=== PATIENT | female | born 1960 | race Hispanic/Latino ===

== ENCOUNTER → 2017-06-05 | Day surgery (SDC) | payer OTHER ==
[~2017-06-05] MED LIST: ACIPHEX20 MG PO; ALBUTEROL SULF8.5 GM INH; ALEVE220 MG PO; AMLODIPINE BESYL5 MG PO; DEXILANT60 MG PO; FENTANYL CITRATE/PF 100MCG/2 ML INJ ONE; FOLIC ACID1 MG PO; HYDROCHLOROTHIA25 MG PO; HYDROXYCHLOROQ200 MG PO; HYOSCYAMINE SULFATE 0.5 MG/ML AMP ONE; INSULIN REGULAR, HUMAN 100 UNIT/1 ML 3ML VIAL ONE; JANUVIA100 MG PO; LAMOTRIGINE100 MG PO; LEFLUNOMIDE10 MG PO; LIDOCAINE HCL 2% LOCAL INJ 5 ML SDV VIAL INJ ONE; LOSARTAN POTAS100 MG PO; LOSARTAN-HCTZ1 EACH PO; METHOTREXATE2.5 MG PO; MIDAZOLAM HCL 2 MG/2 ML VIAL ONE; ONDANSETRON HCL INJ 2 MG/ML VIAL ONE; PRAVASTATIN SOD40 MG PO; PROPOFOL IV EMULSION 10 MG/ML 50 ML VIAL ONE; Q NASAL INH; QUETIAPINE FUMA25 MG; TRIAMTERENE-HC1 EAC1 PO; ZYRTEC10 M3 PO; ZYRTEC10 MG PO; [UNRECOGNIZED DRUG - OTHER] IH
--- NOTE | 2017-06-05 23:06 | Operative Report ---
DATE OF PROCEDURE: June 05, 2017 REFERRING PHYSICIAN: SONIA DINERO MD PROCEDURES PERFORMED: Esophagogastroduodenoscopy with esophageal dilatation and biopsies and a colonoscopy with polypectomy. INDICATIONS FOR ESOPHAGOGASTRODUODENOSCOPY: Dysphagia to solids and bloating. INDICATIONS FOR COLONOSCOPY: Colorectal cancer screening, brother with colon cancer. MEDICATION: Patient was done under MAC. Please see anesthesiologist's note. PROCEDURE: With patient in the left lateral decubitus position, flexible fiberoptic Olympus gastroscope was introduced into the esophagus under direct visualization without any difficulty. There was some patchy erythema noted in distal esophagus. A mild stricture was noted at the GE junction that was dilated to size 50-[place]. The scope was then advanced with ease into the stomach traversing a moderate-sized hiatal hernia. Mucosa overlying the antrum and body revealed some patchy erythema and mild to moderate edema and biopsies were obtained and sent to stain for H. pylori. The pylorus was of normal contour and shape. Was intubated with ease and the scope was advanced all the way to the 2nd portion of the duodenum. The scope was then withdrawn slowly. Mucosa overlying the proximal 2nd portion and the duodenal bulb appeared to be within normal limits. The scope was then withdrawn back into the stomach and mucosa overlying the fundus and the cardia appeared to be within normal limits. The scope was then straightened out. The stomach was decompressed. The scope was subsequently withdrawn. Patient tolerated the procedure well. IMPRESSION: 1. Distal esophagitis. 2. Mild stricture at gastroesophageal junction dilated to size 50-[place]. 3. Small hiatal hernia. 4. Gastritis, mild. Biopsies obtained and sent to stain for H. pylori. PLAN: Follow up histology. Continue Dexilant 60 mg 1 p.o. q.a.m. a.c. PROCEDURE: Patient was then turned around and after adequate lubrication of the anal canal a flexible fiberoptic Olympus colonoscope was inserted into the rectum with ease and advanced all the way to the cecum. It was then withdrawn slowly. Mucosa overlying the cecum and ascending colon and appeared to be within normal limits. One polyp was snared from the transverse colon. Two polyps were hot biopsied from the sigmoid colon. Diverticular disease was noted to involve the distal descending and the sigmoid colon. The rectum appeared to be within normal limits. The scope was then retroflexed into the distal rectum and small internal hemorrhoids were noted, none of which were actively bleeding. The scope was then straightened out. The rectosigmoid area as well as the distal rectal area were decompressed. Scope was subsequently withdrawn. Patient tolerated procedure well. IMPRESSION 1. Transverse colon polyps snared. 2. Diverticulosis. 3. Sigmoid colon polyps, hot biopsied times 2. 4. Internal hemorrhoids, none actively bleeding. PLAN: Follow up histology. Initiate high-fiber, low-fat diet. Initiate high-fiber supplement. Patient will need a followup colonoscopy in 3 years. Job#: [id number] cc:SONIA DINERO MD
== END | disposition home or self-care (01) ==
LOC: OR 13:32
PROVIDERS: ATTEND Internal Medicine Gastroenterology
DX: K22.2 Esophageal obstruction (principal); D12.3 Benign neoplasm of transverse colon; K29.70 Gastritis, unspecified, without bleeding; K20.9 Esophagitis, unspecified; K44.9 Diaphragmatic hernia without obstruction or gangrene; K57.30 Diverticulosis of large intestine without perforation or abscess without bleeding; K64.8 Other hemorrhoids; I10 Essential (primary) hypertension; E11.9 Type 2 diabetes mellitus without complications; R05 Cough; F32.9 Major depressive disorder, single episode, unspecified; F41.9 Anxiety disorder, unspecified; Z01.810 Encounter for preprocedural cardiovascular examination
CPT/HCPCS: 36415; 43239; 43450; 45384; 45385; 82948; 93005; J1980; J2001; J2250; J2405; 45378

== ENCOUNTER → 2018-04-10 | Day surgery (SDC) | payer OTHER ==
[~2018-04-10] MED LIST changes: -HYOSCYAMINE SULFATE 0.5 MG/ML AMP ONE; -INSULIN REGULAR, HUMAN 100 UNIT/1 ML 3ML VIAL ONE; -ONDANSETRON HCL INJ 2 MG/ML VIAL ONE; +PROPOFOL IV EMULSION 10 MG/ML 20 ML VIAL ONE; -PROPOFOL IV EMULSION 10 MG/ML 50 ML VIAL ONE
--- OUTSIDE RECORDS SUMMARY | 2018-04-10 12:08 | XMS REPORT ---
Author Author Jung Ordonez Organization [employer] Address Unknown Phone Unavailable Care Team Providers Care Report Specialist Name Role Phone Jung Ordonez CP Unavailable Allergies, Adverse Reactions, Alerts Substance Reaction Event Type Methotrexate hair loss Drug Allergy Sulfasalazine hair loss Drug Allergy Diflucan hives Drug Allergy Problems Problem Type Condition Code Onset Dates Condition Status Problem Long-term use of immunosuppressant medication Z79.899 Active Problem Inflammatory arthritis M19.90 Active Problem Rheumatoid arthritis involving multiple sites with positive rheumatoid factor M05.79 Active Assessment Inflammatory arthritis M19.90 Active Assessment Rheumatoid arthritis involving multiple sites with positive rheumatoid factor M05.79 Active Medications Medication Code System Code Instructions Start Date End Date Status Dosage Hydrochlorothiazide-25 mg ND 28257803080 25 MG Orally Once a day Active 1 tablet Alphagan P ND 31559823873 0.1 % Ophthalmic BID Active 1 drop into affected eye Folic Acid ND 73873795331 1 MG Orally Once a day Active 1 tablet Losartan Potassium ND 69236754010 50 MG Orally Once a day Active 1 tablet Pravastatin Sodium ND 68282338919 20 MG Orally Once a day Active 1 tablet Zyrtec Allergy ND 94039850069 10 MG Orally Once a day Active 1 tablet Methotrexate NDC 0 2.5mg Orally Once a week Active 2 tablets Vitamin D (Ergocalciferol) ND 50009905836 01466 UNIT Orally once a week Active 1 capsule Dexilant ND 39000125688 60 MG Orally Once a day Active 1 capsule Vital Signs Date/Time: Jul 18, 2017 BMI 38.41 Index Weight 210 lbs Height 62 in Temperature 98.2 F Cardiac Monitoring Heart Rate 104 /min Blood Pressure Diastolic 80 mm Hg Blood Pressure Systolic 142 mm Hg Results No Known Results Summary Purpose [employer] Submission
--- OUTSIDE RECORDS SUMMARY | 2018-04-10 12:08 | XMS REPORT | Clinical Summary ---
Author Author [facility] Organization [facility] Address Unknown Phone Unavailable Care Team Providers Care Department Editor Name Role Phone Jarad Mathis MD PCP Allergies Active Allergy Reactions Severity Noted Date Comments Fluconazole Hives 09/15/2016 Rash Current Medications Prescription Sig. Disp. Refills Start End Date Status Date DEXILANT 60 mg capsule Take 60 mg by mouth 07/24/19 Active daily. 17 folic acid (FOLVITE) 1 MG Take 1 mg by mouth daily. 08/23/19 Active tablet 17 hydroCHLOROthiazide Take 25 mg by mouth 09/13/19 Active (HYDRODIURIL) 25 MG daily. 17 tablet lamoTRIgine (LaMICtal) Take 200 mg by mouth 0 09/10/19 Active 200 MG tablet daily. 17 losartan (COZAAR) 50 MG Take 50 mg by mouth 09/13/19 Active tablet daily. 17 methotrexate 2.5 MG Take 2.5 mg by mouth 08/24/19 Active tablet daily. 17 pravastatin (PRAVACHOL) Take 20 mg by mouth 09/13/19 Active 20 MG tablet daily. 17 QUEtiapine (SEROquel) 25 Take 25 mg by mouth 0 09/10/19 Active MG tablet daily. 17 LORAZepam (ATIVAN) 0.5 MG 08/20/19 Active tablet 18 latanoprost (XALATAN) 07/17/19 Active 0.005 % ophthalmic 18 solution glimepiride (AMARYL) 2 MG TK 1 T PO QD WITH RENU OR 2 09/20/19 Active tablet THE FIRST MAIN MEAL OF 18 THE DAY brimonidine (ALPHAGAN) 07/17/19 Active 0.2 % ophthalmic solution 18 nystatin (MYCOSTATIN) Apply topically 4 (four) 60 g 3 09/22/19 09/22/19 Active 100,000 unit/gram powder times a day. 18 19 hydroxychloroquine Take 200 mg by mouth 09/15/19 09/22/19 Discontin (PLAQUENIL) 200 mg tablet daily. 17 18 ued traMADol (ULTRAM) 50 mg Take 50 mg by mouth as 0 09/03/19 09/22/19 Discontin tablet needed. 17 18 ued terconazole (TERAZOL 3) Insert 1 applicator into 20 g 0 07/05/19 07/08/19 0.8 % vaginal cream the vagina nightly for 3 18 18 days. terconazole (TERAZOL 7) Insert 1 applicator into 45 g 0 08/14/19 08/22/19 0.4 % vaginal cream the vagina nightly for 7 18 18 days. butoconazole nitrate Insert 1 applicator into 1 each 0 09/22/19 09/22/19 (GYNAZOLE-1) 2 % cream the vagina once for 1 18 dose. metroNIDAZOLE (METROGEL) Insert into the vagina 70 g 0 09/27/19 10/02/19 0.75 % vaginal gel nightly for 5 days. 18 18 Active Problems No known active problems Encounters Date Type Specialty Care Team Description 12/04/2017 Telephone Obstetrics and Gynecology Kylee Schwarz RN 09/28/2017 Telephone Obstetrics and Gynecology Kylee Schwarz RN 09/28/2017 Telephone Obstetrics and Gynecology Kylee Schwarz, JAMI 09/26/2017 Telephone Obstetrics and Gynecology Kylee Schwarz, JAMI 09/21/2017 Office Visit Obstetrics and Gynecology Ana Luisa Smith, [place] woman exam (Primary MD Dx); Breast lump on right side at 11 o'clock position; Vaginal itching; Candidiasis, intertrigo 08/14/2017 Telephone Obstetrics and Gynecology Kylee Schwarz RN 07/20/2017 Telephone Obstetrics and Gynecology Elena Noonan MA Lump of breast, right (Primary Dx); Dense breast tissue 07/05/2017 Telephone Obstetrics and Gynecology Elena Noonan MA after 04/09/2017 Family History Medical History Relation Name Comments Colon cancer Brother Diabetes Father Heart disease Father Hypertension Mother Stomach cancer Sister Breast cancer Sister Relation Name Status Comments Brother Alive Father (Age 60) Mother (Age 85) Sister (Age 53) Sister Alive Social History Tobacco Use Types Packs/Day Years Used Date Never Smoker Smokeless Tobacco: Never Used Alcohol Use Drinks/Week oz/Week Comments Yes 2 Glasses of 1.2 occ wine Sex Assigned at Date Recorded Not on file Last Filed Vital Signs Vital Sign Reading Time Taken Blood Pressure 121/85 09/21/2017 3:21 PM CDT Pulse 96 09/21/2017 3:21 PM CDT Temperature 36.8 C (98.2 F) 09/21/2017 3:21 PM CDT Respiratory Rate - - Oxygen Saturation - - Inhaled Oxygen - - Concentration Weight 92.4 kg (203 lb 12.8 oz) 09/21/2017 3:21 PM CDT Height 154.9 cm (5' 1") 09/21/2017 3:21 PM CDT Body Mass Index 38.51 09/21/2017 3:21 PM CDT Plan of Treatment Health Maintenance Due Date Last Done Comments CERVICAL CANCER SCREENING 1981 COLON CANCER SCREENING 2010 SHINGRIX VACCINE (#1) 2010 BREAST CANCER SCREENING 11/04/2017 11/05/2015 INFLUENZA VACCINE 01/17/2018 Procedures Procedure Name Priority Date/Time Associated Diagnosis Comments SURESWAB(R), CANDIDIASIS, Routine 09/21/2017 Results for this PCR (REFLEX) 4:01 PM CDT procedure are in the results section. SURESWAB(R) TRICHOMONAS Routine 09/21/2017 Results for this VAGINALIS RNA, QL, TMA 4:01 PM CDT procedure are in the results section. SURESWAB(R) BACTERIAL Routine 09/21/2017 Results for this VAGINOSIS DNA, QN, PCR 4:01 PM CDT procedure are in the (REFLEX) results section. CHLAMYDIA/N. GONORRHOEAE Routine 09/21/2017 Results for this RNA, TMA (REFLEX) 4:01 PM CDT procedure are in the results section. after 04/09/2017 Results * SURESWAB(R), CANDIDIASIS, PCR (09/21/2017 4:01 PM) C. albicans, DNA NOT DETECTED [facility] C. glabrata, DNA DETECTED (A) [facility] C. tropicalis, DNA NOT DETECTED [facility] C. parapsilosis, DNA NOT DETECTED [facility] Comment: REFERENCE RANGE: NOT DETECTED This test was developed and its analytical performance characteristics have been determined by [facility]. It has not been cleared or approved by FDA. This assay has been validated pursuant to the CLIA regulations and is used for clinical purposes. Other Results Text Performing Organization Information: Site ID: [id number] Name: [facility] Address: [address] [place] [id number] Director: Jay Broussard MD Performing Organization Address [facility] Phone Number [facility] [address] [place] [address] [phone] * SURESWAB(R) TRICHOMONAS VAGINALIS RNA, QL, TMA (Reflex) (09/21/2017 4:01 PM) [facility](r) trichomonas NOT DETECTED [facility] vaginalis RNA, QL, TMA Comment: REFERENCE RANGE: NOT DETECTED This test was performed using the APTIMA(R) Trichomonas vaginalis assay (Gen-Probe(R)). For additional information, please refer to [email or web address] Other Results Text Performing Organization Information: Site ID: [id number] Name: [facility] Address: [address] [place] [phone] Director: Jay Broussard MD Performing Organization Address [facility] Phone Number [facility] [address] [place] [address] [phone] * SURESWAB(R) BACTERIAL VAGINOSIS DNA, QN, PCR (09/21/2017 4:01 PM) BV category SUPPORTIVE (A) [facility] Lactobacillus species NOT DETECTED Log (cells/mL) [facility] Atopobium vaginae NOT DETECTED Log (cells/mL) [facility] Megasphaera species NOT DETECTED Log (cells/mL) [facility] Gardnerella vaginalis 7.3 Log (cells/mL) [facility] Comment: REFERENCE RANGE: BV Category: NOT SUPPORTIVE NOT SUPPORTIVE OF BV: The pattern of results is not supportive of a diagnosis of BV: 1) Presence of Lactobacillus spp., G. vaginalis levels less than 6.0 log cells/mL, and absence of A. vaginae and Megasphaera spp; or 2) Absence of all targeted organisms; or 3) Absence of Lactobacillus spp. plus G. vaginalis detected at levels less than 6.0 log cells/mL and absence of A. vaginae and Megasphaera spp. EQUIVOCAL FOR BV: The pattern of results is neither supportive nor not supportive of a diagnosis of BV. The patient may be in transition into or out of BV: Presence of Lactobacillus spp. plus G. vaginalis (greater or equal to 6.0 log cells/mL) and/or one of the other BV-associated pathogens. SUPPORTIVE OF BV: The pattern of results is supportive of a diagnosis of BV: Absence of Lactobacillus spp. and presence of G. vaginalis greater than or equal to 6.0 log cells/mL and/or one or both of the other BV-associated pathogens. Concentration for Lactobacilli (L. acidophilus/crispatus, L. jensenii) are collectively reported under the term "Lactobacillus spp.", as these species are among the peroxide producing Lactobacilli thought to be protective against bacterial vaginosis. Atopobium vaginae, Megasphaera spp., and Gardnerella (greater than 6.0 log cells/mL) have been associated with vaginosis when present in the absence of peroxidase producing Lactobacilli. This test was developed and its analytical performance characteristics have been determined by [facility]. It has not been cleared or approved by FDA. This assay has been validated pursuant to the CLIA regulations and is used for clinical purposes. Other Results Text Performing Organization Information: Site ID: [id number] Name: [facility] Address: [address] [place] [phone] Director: Jay Broussard MD Performing Organization Address City/State/Zipcode Phone Number [facility] [address] [place] [address] [phone] * CHLAMYDIA/N. GONORRHOEAE RNA, TMA (09/21/2017 4:01 PM) Chlamydia trachomatis NOT DETECTED [facility] RNA, TMA Neisseria gonorrhoeae NOT DETECTED [facility] RNA, TMA Comment: REFERENCE RANGE: C. TRACHOMATIS RNA, TMA: NOT DETECTED N. GONORRHOEAE RNA, TMA: NOT DETECTED This test was performed using the APTIMA(R) COMBO2 Assay (GEN-PROBE). Other Results Text Performing Organization Information: Site ID: [id number] Name: [facility] Address: [address] [place] [phone] Director: Jay Broussard MD Performing Organization Address City/State/Zipcode Phone Number [facility] [address] [place] [address] [phone] after 04/09/2017 Insurance Payer Benefit Subscriber ID Type Phone Address Plan / Group AETNA AETNA PPO xxxxxxxxxx PPO OPEN CHOICE
--- OUTSIDE RECORDS SUMMARY | 2018-04-10 12:08 | XMS REPORT ---
Author Author Jung Ordonez Organization [employer] Address Unknown Phone Unavailable Care Team Providers Care Mental Health Orderly Name Role Phone uJng Ordonez CP Unavailable Allergies No Known Allergies Problems Problem Type Condition Code Onset Dates Condition Status Problem Rheumatoid arthritis involving multiple sites with positive rheumatoid factor M05.79 Active Problem Long-term use of immunosuppressant medication Z79.899 Active Problem Jaw pain R68.84 Active Problem Inflammatory arthritis M19.90 Active Medications No Known Medications Results No Known Results Summary Purpose [employer]Works Submission
--- OUTSIDE RECORDS SUMMARY | 2018-04-10 12:08 | XMS REPORT | Continuity of Care Document ---
Author Author [facility] Address Unknown Phone Unavailable Problems Problem Status Onset Date Classification Date Reported Comments Source Rheumatoid arthritis involving multiple sites with positive rheumatoid factor Active Problem 12/20/2017 Tommy Ordonez Long-term use of immunosuppressant medication Active Problem 12/20/2017 Tommy Ordonez Jaw pain Active Diagnosis 12/20/2017 Tommy Ordonez Inflammatory arthritis Active Diagnosis 12/20/2017 Tommy Ordonez Medications Medication Details Route Status Patient Instructions Ordering Provider Order Date Source Cyclobenzaprine HCl 1 tablet as needed Orally Active 10 MG Orally once a day [place] 12/08/2017 Tommy Ordonez Hydrochlorothiazide-25 mg 1 tablet Orally Active 25 MG Orally Once a day Ordonez Tommy Ordonez Alphagan P 1 drop into affected eye Ophthalmic Active 0.1 % Ophthalmic BID [place] Tommy Ordonez Folic Acid 1 tablet Orally Active 1 MG Orally Once a day Ordonez Tommy Ordonez Losartan Potassium 1 tablet Orally Active 50 MG Orally Once a day Ordonez Tommy Ordonez Pravastatin Sodium 1 tablet Orally Active 20 MG Orally Once a day Ordonez Tommy Ordonez Zyrtec Allergy 1 tablet Orally Active 10 MG Orally Once a day Ordonez Tommy Ordonez Methotrexate 2 tablets Orally Active 2.5mg Orally Once a week Mery Ordonez Vitamin D (Ergocalciferol) 1 capsule Orally Active 82079 UNIT Orally once a week Ordonez Tommy Ordonez Dexilant 1 capsule Orally Active 60 MG Orally Once a day Ordonez Tommy Ordonez Vitamin D 1 tablet Orally Active 1000 UNIT Orally Once a day Ordonez Tommy Ordonez Plaquenil 1 tablet with food or milk Orally Active 200 MG Orally Twice a day Mery Ordonez Womens Multivitamin as directed Orally Active - Orally Ordonez Tommy Ordonez Vitamin B12 not defined Orally Active Orally Once a month Mery Ordonez Allergies, Adverse Reactions, Alerts Substance Category Reaction Severity Reaction type Status Date Reported Comments Source Methotrexate Adverse Reaction hair loss Adverse Reaction Active 12/05/2017 Tommy Ordonez Sulfasalazine Adverse Reaction hair loss Adverse Reaction Active 12/05/2017 Tommy Ordonez Diflucan Adverse Reaction hives Adverse Reaction Active 12/05/2017 Tommy Thompsoner Immunizations Immunization Date Given Site Status Last Updated Comments Source Results Order Name Results Value Reference Range Date Interpretation Comments Source Vital Signs Vital Sign Value Date Comments Source Weight 205 12/05/2017 Tommy Ordonez Height 62 12/05/2017 Tommy Ordonez Temperature Oral (F) 98.4 F 12/05/2017 Tommy Ordonez Heart Rate 88 12/05/2017 Tommy Ordonez Diastolic (mm Hg) 78 12/05/2017 Tommy Ordonez Systolic (mm Hg) 120 12/05/2017 Tommy Ordonez Weight 210 07/18/2017 Tommy Ordonez Height 62 07/18/2017 Tommy Thompsoner Temperature Oral (F) 98.2 F 07/18/2017 Tommy Ordonez Heart Rate 104 07/18/2017 Tommy Ordonez Diastolic (mm Hg) 80 07/18/2017 Tommy Ordonez Systolic (mm Hg) 142 07/18/2017 Tommy Ordonez Encounters Location Location Details Encounter Type Encounter Number Reason For Visit Attending Provider ADM Date DC Date Status Source Procedures Procedure Code Date Perfomer Comments Source
--- OUTSIDE RECORDS SUMMARY | 2018-04-10 12:08 | XMS REPORT ---
Author Author Jung Ordonez Organization [employer] Address Unknown Phone Unavailable Care Team Providers Care Senior Reactor Operator Name Role Phone Jung Ordonez CP Unavailable Allergies No Known Allergies Problems Problem Type Condition Code Onset Dates Condition Status Problem Rheumatoid arthritis involving multiple sites with positive rheumatoid factor M05.79 Active Problem Long-term use of immunosuppressant medication Z79.899 Active Problem Jaw pain R68.84 Active Problem Inflammatory arthritis M19.90 Active Medications Medication Code System Code Instructions Start Date End Date Status Dosage Cyclobenzaprine HCl [facility] 93303574607 10 MG Orally once a day December 08, 2017 Mar 08, 2018 Active 1 tablet as needed Results No Known Results Summary Purpose [employer] Submission
--- OUTSIDE RECORDS SUMMARY | 2018-04-10 12:08 | XMS REPORT ---
Author Author Jung Ordonez Organization [employer] Address Unknown Phone Unavailable Care Team Providers Care Sheet Catcher Name Role Phone Jung Ordonez CP Unavailable [...]
--- OUTSIDE RECORDS SUMMARY | 2018-04-10 12:08 | XMS REPORT ---
Author Author Jung Ordonez [facility] [employer] Address Unknown Phone Unavailable Care Team Providers Care Pensions Retirement Plan Specialist Name Role Phone Jung Ordonez CP Unavailable Allergies, Adverse Reactions, Alerts Substance Reaction Event Type Methotrexate hair loss Drug Allergy Sulfasalazine hair loss Drug Allergy Diflucan hives Drug Allergy Problems Problem Type Condition Code Onset Dates Condition Status Assessment Jaw pain R68.84 Active Problem Rheumatoid arthritis involving multiple sites with positive rheumatoid factor M05.79 Active Problem Long-term use of immunosuppressant medication Z79.899 Active Problem Jaw pain R68.84 Active Assessment Inflammatory arthritis M19.90 Active Assessment Long-term use of immunosuppressant medication Z79.899 Active Problem Inflammatory arthritis M19.90 Active Assessment Rheumatoid arthritis involving multiple sites with positive rheumatoid factor M05.79 Active Medications Medication Code System Code Instructions Start Date End Date Status Dosage Hydrochlorothiazide-25 mg ND 02753355367 25 MG Orally Once a day Active 1 tablet Zyrtec Allergy ND 02524872504 10 MG Orally Once a day Active 1 tablet Vitamin D ND 00070478469 1000 UNIT Orally Once a day Active 1 tablet Plaquenil ND 16451949925 200 MG Orally Twice a day Active 1 tablet with food or milk Folic Acid ND 50222595289 1 MG Orally Once a day Active 1 tablet Dexilant ND 29498182161 60 MG Orally Once a day Active 1 capsule Losartan Potassium ND 71960389747 50 MG Orally Once a day Active 1 tablet Alphagan P ND 55719644868 0.1 % Ophthalmic BID Active 1 drop into affected eye Womens Multivitamin ND 96676376556 - Orally Active as directed Vitamin B12 ND 56018600291 Orally Once a month Active not defined Methotrexate NDC 0 2.5mg Orally Once a week Active 2 tablets Pravastatin Sodium ND 36851960664 20 MG Orally Once a day Active 1 tablet Vital Signs Date/Time: December 05, 2017 BMI 37.49 Index Weight 205 lbs Height 62 in Temperature 98.4 F Cardiac Monitoring Heart Rate 88 /min Blood Pressure Diastolic 78 mm Hg Blood Pressure Systolic 120 mm Hg Results No Known Results Summary Purpose [employer] Submission
[2018-04-10 15:25] VITALS: BP 100/53
--- NOTE | 2018-04-10 15:33 | Operative Report ---
DATE OF PROCEDURE: April 10, 2018 REFERRING PHYSICIAN: Dr. Jarad Mathis PROCEDURE PERFORMED: Esophagogastroduodenoscopy with biopsies and esophageal dilatation. INDICATIONS FOR EGD: Dysphagia. MEDICATION: Patient was done under MAC. Please see anesthesiologist's note. PROCEDURE: With the patient in the left lateral decubitus position, the flexible fiberoptic Olympus gastroscope was introduced into the esophagus under direct visualization without any difficulty. There was some patchy erythema noted in the distal esophagus. Minute tongue of velvety red mucosa was noted to extend proximally from the GE junction, and that was biopsied to rule out Esteves's. There was a mild stricture noted at the GE junction, and that was dilated to size 52-[place] De Luna. The scope was then advanced with ease into the stomach, traversing a small sliding hiatal hernia. Mucosa overlying the antrum and the body revealed some diffuse erythema and moderate edema, and biopsies were obtained and sent to stain for H. pylori. Some minute gastric polyps were noted in the body, and some were partially excised with cold biopsy forceps. Pylorus appeared to be of normal contour and shape. It was intubated with ease, and the scope was advanced all the way to the 2nd portion of duodenum. There were some, approximately 2, somewhat scalloped folds noted in the proximal 2nd portion, and biopsies were obtained to rule out sprue. Mucosa overlying the duodenal bulb appeared to be within normal limits. The scope was then withdrawn back into the stomach and retroflexed. Mucosa overlying the fundus and cardia appeared to be within normal limits. The scope was then straightened out. It was subsequently withdrawn. Patient tolerated the procedure well. IMPRESSION 1. Distal esophagitis, mild. 2. Rule out Esteves's. 3. Mild stricture at gastroesophageal junction dilated to size 52-[place] De Luna. 4. Small sliding hiatal hernia. 5. Gastritis, biopsied. Biopsies sent to stain for H. pylori. 6. Gastric polyps, minute, body, some partially excised with cold biopsy forceps. 7. Rule out sprue. PLAN: Follow up histology. Continue Dexilant 60 mg 1 p.o. q.a.m. a.c. Add Reglan 10 mg 1 p.o. a.c. t.i.d. and nightly. Job#: [id number] cc:JARAD MATHIS MD
== END | disposition home or self-care (01) ==
LOC: OR 12:06
PROVIDERS: ATTEND Internal Medicine Gastroenterology
DX: K22.2 Esophageal obstruction (principal); K31.7 Polyp of stomach and duodenum; K29.70 Gastritis, unspecified, without bleeding; K20.9 Esophagitis, unspecified; K44.9 Diaphragmatic hernia without obstruction or gangrene; K21.9 Gastro-esophageal reflux disease without esophagitis; K22.8 Other specified diseases of esophagus; I10 Essential (primary) hypertension; E78.00 Pure hypercholesterolemia, unspecified; H40.9 Unspecified glaucoma; M06.9 Rheumatoid arthritis, unspecified; E11.9 Type 2 diabetes mellitus without complications; Z88.8 Allergy status to other drugs, medicaments and biological substances; Z01.810 Encounter for preprocedural cardiovascular examination; Z68.38 Body mass index [BMI] 38.0-38.9, adult; Z80.0 Family history of malignant neoplasm of digestive organs
CPT/HCPCS: 43239; 43450; 93005; J2001; J2250

== ENCOUNTER → 2019-05-29 | Day surgery (SDC) | payer OTHER ==
[~2019-05-29] MED LIST changes: +BIOTIN2500 MCG PO; -FENTANYL CITRATE/PF 100MCG/2 ML INJ ONE; +GLIMEPIRIDE2 MG PO; +GLYXAMBI 10 MG1 EACH PO; +MULTI-VITAMIN1 EACH PO; -PROPOFOL IV EMULSION 10 MG/ML 20 ML VIAL ONE; +PROPOFOL IV EMULSION 10 MG/ML 50 ML VIAL ONE; +VITAMIN D32000 UNI1 PO
[2019-05-29 13:00] VITALS: BP 107/77
--- NOTE | 2019-05-29 13:16 | Operative Report ---
DATE OF PROCEDURE: 05/29/2019 SURGEON: Wilfred Peters MD PROCEDURES: EGD with polypectomy and esophageal dilatation and biopsies. INDICATIONS FOR EGD: Dysphagia. MEDICATIONS: The patient was done under MAC, please see anesthesiologist's note. PROCEDURE IN DETAIL: With the patient in left lateral decubitus position, a flexible fiberoptic Olympus gastroscope was introduced into the esophagus under direct visualization without any difficulty. A mild esophageal stricture was noted at the GE junction and that was dilated to size 52-[place] De Luna. The scope was then advanced with ease into the stomach traversing a small hiatal hernia. There was a nodule in the hiatal hernia sac and that was biopsied. Several polyps were noted in the body of the stomach and approximately 5 polyps were removed per snare electrocautery. The mucosa overlying the antrum and the body revealed some patchy areas of erythema. The pylorus was intubated with ease and the scope was advanced all the way to the second portion of the duodenum. The scope was then withdrawn slowly mucosa overlying the proximal second portion and the duodenal bulb appeared to be within normal limits. The scope was then withdrawn back into the stomach and retroflexed, and mucosa overlying the fundus and cardia appeared to be within normal limits. The scope was then straightened out, it was subsequently withdrawn. The patient tolerated the procedure well. IMPRESSION: 1. Esophageal stricture at GE junction, dilated to size 52-[place] De Luna. 2. Small hiatal hernia. 3. Minute nodule, hiatal hernia sac biopsied. 4. Gastric polyps, approximately 5 up to 4 mm in size were removed per snare electrocautery. 5. Gastritis, mild. PLAN: 1. Follow up histology. 2. Continue Dexilant 60 mg one p.o. q.a.m. a.c. Wilfred Peters MD [facility] [place]/MODL /[id number] cc: Tk Coto MD
== END | disposition home or self-care (01) ==
LOC: OR 09:39
PROVIDERS: ATTEND Internal Medicine Gastroenterology
DX: R13.10 Dysphagia, unspecified (principal); K22.2 Esophageal obstruction; K44.9 Diaphragmatic hernia without obstruction or gangrene; K31.7 Polyp of stomach and duodenum; K29.70 Gastritis, unspecified, without bleeding; Z01.810 Encounter for preprocedural cardiovascular examination
CPT/HCPCS: 36415; 43239; 43251; 43450; 82948; 93005; J2001; J2250; J2704

== ENCOUNTER → 2020-10-22 | Day surgery (SDC) | payer OTHER ==
[~2020-10-22] MED LIST changes: +COMBIGAN EYE DRO5 ML OP; -LIDOCAINE HCL 2% LOCAL INJ 5 ML SDV VIAL INJ ONE; +METFORMIN HCL500 MG PO; -MIDAZOLAM HCL 2 MG/2 ML VIAL ONE; +PANTOPRAZOLE 40 MG 10ML VIAL ONE; -PROPOFOL IV EMULSION 10 MG/ML 50 ML VIAL ONE
[2020-10-22 15:40] VITALS: BP 118/65
== END | disposition home or self-care (01) ==
LOC: OR 11:59
PROVIDERS: ATTEND Internal Medicine Gastroenterology
DX: Z12.11 Encounter for screening for malignant neoplasm of colon (principal); Z86.010 Personal history of colon polyps; K31.7 Polyp of stomach and duodenum; K29.70 Gastritis, unspecified, without bleeding; K21.9 Gastro-esophageal reflux disease without esophagitis; K20.90 Esophagitis, unspecified without bleeding; K44.9 Diaphragmatic hernia without obstruction or gangrene; K57.30 Diverticulosis of large intestine without perforation or abscess without bleeding; K64.8 Other hemorrhoids; I10 Essential (primary) hypertension; E78.5 Hyperlipidemia, unspecified; E11.9 Type 2 diabetes mellitus without complications; Z01.810 Encounter for preprocedural cardiovascular examination; Z01.812 Encounter for preprocedural laboratory examination; Z20.822 Contact with and (suspected) exposure to COVID-19; Z79.84 Long term (current) use of oral hypoglycemic drugs; Z80.0 Family history of malignant neoplasm of digestive organs
CPT/HCPCS: 36415; 43239; 45378; 82948; 93005; C9113; U0002; 43450

== ENCOUNTER 2021-10-17 18:35 | Emergency (ER) | payer OTHER ==
[~2021-10-17] VITALS: Ht 154.9 cm; Wt 90.3 kg
[~2021-10-17 18:35] MED LIST changes: -PANTOPRAZOLE 40 MG 10ML VIAL ONE
== END 2021-10-17 19:51 | disposition home or self-care (01) ==
LOC: ER 18:45
DX: S92.531A Displaced fracture of distal phalanx of right lesser toe(s), initial encounter for closed fracture (principal); W20.8XXA Other cause of strike by thrown, projected or falling object, initial encounter; Y92.89 Other specified places as the place of occurrence of the external cause; I10 Essential (primary) hypertension; E11.9 Type 2 diabetes mellitus without complications; E78.5 Hyperlipidemia, unspecified; I50.9 Heart failure, unspecified; K21.9 Gastro-esophageal reflux disease without esophagitis
CPT/HCPCS: 99283

== ENCOUNTER 2022-02-14 20:42 | Emergency (ER) | payer OTHER ==
[~2022-02-14] VITALS: Ht 154.9 cm; Wt 87.1 kg
[2022-02-14] MEDS ORDERED: ONDANSETRON HCL 4 MG ORAL DISINTEGRATING TAB PO ONE (21:00)
[2022-02-14 21:09] LABS: CLARITY,URINE SL CLOUDY (CLEAR); COLOR,URINE YELLOW (YELLOW); KETONES,URINE NEGATIVE (NEGATIVE); LEUKOCYTE ESTERASE ,URINE NEGATIVE (NEGATIVE); NITRITE,URINE NEGATIVE (NEGATIVE); PROTEIN,URINE DIPSTICK TRACE (NEGATIVE); URINE UROBILINOGEN 0.2 mg/dL (0.2 - 1)
[2022-02-14 21:16] LABS: BACTERIA,URINE MODERATE /HPF; EPITHELIAL CELLS,URINE MODERATE /LPF; RENAL EPITHELIAL CELLS,URINE FEW; WBC,URINE (MAN) 0-5 /HPF (0-5)
== END 2022-02-14 21:28 | disposition home or self-care (01) ==
LOC: ER 20:51
DX: S39.012A Strain of muscle, fascia and tendon of lower back, initial encounter (principal); R11.0 Nausea; I10 Essential (primary) hypertension; E11.9 Type 2 diabetes mellitus without complications; E78.5 Hyperlipidemia, unspecified; I50.9 Heart failure, unspecified; K21.9 Gastro-esophageal reflux disease without esophagitis
CPT/HCPCS: 81001; 99282; Q0162

== ENCOUNTER → 2022-09-22 | Day surgery (SDC) | payer OTHER ==
[~2022-09-22] MED LIST changes: +BENADRYL25 M1 PO; +BIOTIN5 M1 PO; +FENTANYL CITRATE/PF 100MCG/2 ML INJ ONE; +LACTATED RINGER'S 1,000 ML ONE; +LIDOCAINE HCL 2% LOCAL INJ 5 ML SDV VIAL INJ ONE; +METOCLOPRAMIDE HCL 10 MG/2ML VIAL ONE; +ONDANSETRON HCL INJ 2MG/ML 2ML 2 MG/ML VIAL ONE; +OZEMPIC0.25 MG/0. SC; +POVIDONE IODINE 0.05% 0.05 % ML PO ONE; +PROPOFOL IV EMULSION 10 MG/ML 20 ML VIAL ONE; +VITAMIN D310 MC1 PO
[2022-09-22 16:50] VITALS: BP 126/70
== END | disposition home or self-care (01) ==
LOC: ENDO 13:29
PROVIDERS: ATTEND Internal Medicine Gastroenterology
DX: K22.2 Esophageal obstruction (principal); K31.7 Polyp of stomach and duodenum; K29.70 Gastritis, unspecified, without bleeding; K22.70 Barrett's esophagus without dysplasia; K44.9 Diaphragmatic hernia without obstruction or gangrene; K59.09 Other constipation; Z71.3 Dietary counseling and surveillance; I10 Essential (primary) hypertension; E78.00 Pure hypercholesterolemia, unspecified; H40.9 Unspecified glaucoma; M06.9 Rheumatoid arthritis, unspecified; E11.9 Type 2 diabetes mellitus without complications; Z01.810 Encounter for preprocedural cardiovascular examination; Z79.84 Long term (current) use of oral hypoglycemic drugs; Z79.85 Long-term (current) use of injectable non-insulin antidiabetic drugs; Z79.899 Other long term (current) drug therapy; Z68.35 Body mass index [BMI] 35.0-35.9, adult; Z80.0 Family history of malignant neoplasm of digestive organs
CPT/HCPCS: 36415; 43239; 43450; 82948; 93005; C9113; J2001; J2405; J2704; J2765; J3010; J7121

== ENCOUNTER 2023-04-24 19:59 | Emergency (ER) | payer OTHER ==
[~2023-04-24] VITALS: Ht 154.9 cm; Wt 87.1 kg
[~2023-04-24 19:59] MED LIST changes: -FENTANYL CITRATE/PF 100MCG/2 ML INJ ONE; -LACTATED RINGER'S 1,000 ML ONE; -LIDOCAINE HCL 2% LOCAL INJ 5 ML SDV VIAL INJ ONE; -METOCLOPRAMIDE HCL 10 MG/2ML VIAL ONE; -ONDANSETRON HCL INJ 2MG/ML 2ML 2 MG/ML VIAL ONE; -POVIDONE IODINE 0.05% 0.05 % ML PO ONE; -PROPOFOL IV EMULSION 10 MG/ML 20 ML VIAL ONE
[2023-04-24 20:34] LABS: BASOPHILS # (AUTO) 0.1 (0.0-0.1); BASOPHILS % 1.4 % (0.0-1.0); EOSINOPHILS # (AUTO) 0.2 (0.0-0.4); EOSINOPHILS % 2.4 % (0.0-6.0); HEMOGLOBIN 12.7 g/dL (12.0-16.0); LYMPHOCYTES # (AUTO) 1.8 (1.0-3.2); LYMPHOCYTES % 19.7 % (18.0-39.1); MEAN CORPUSCULAR HEMOGLOBIN 29.5 pg (28-32); MEAN CORPUSCULAR HGB CONC 33.4 g/dL (31-35); MEAN CORPUSCULAR VOLUME 88.4 fL (81-99); MONOCYTES # (AUTO) 0.8 (0.2-0.8); NEUTROPHILS # (AUTO) 6.2 (2.1-6.9); NEUTROPHILS % 67.2 % (38.7-80.0); PLATELET COUNT 314 x10e3/uL (140-360); RED CELL DISTRIBUTION WIDTH 13.9 % (11.7-14.4); WHITE BLOOD COUNT 9.21 x10e3/uL (4.8-10.8)
[2023-04-24 20:51] LABS: ALBUMIN 3.9 g/dL (3.5-5.0); ALBUMIN/GLOBULIN RATIO 1.3 (0.8-2.0); ANION GAP 13.1 mmol/L (8-16); CALCIUM 9.7 mg/dL (8.4-10.2); CREATININE, SERUM 0.8 mg/dL (0.57-1.11); POTASSIUM 3.1 mmol/L (3.5-5.1)
[2023-04-24] MEDS ORDERED: POTASSIUM CHLORIDE 20 MEQ TAB CR PO STA (21:11)
[2023-04-24] MEDS ORDERED: SODIUM CHLORIDE 0.9% 1000ML 1,000 ML IV STA (21:16)
[2023-04-24 22:13] VITALS: O2SAT 97
== END 2023-04-24 22:45 | disposition home or self-care (01) ==
LOC: ER 20:06
DX: R42 Dizziness and giddiness (principal); E87.6 Hypokalemia; R74.8 Abnormal levels of other serum enzymes; I10 Essential (primary) hypertension; E11.65 Type 2 diabetes mellitus with hyperglycemia; E78.5 Hyperlipidemia, unspecified; I50.9 Heart failure, unspecified; K21.9 Gastro-esophageal reflux disease without esophagitis
CPT/HCPCS: 36415; 70450; 80053; 82550; 84484; 85025; 93005; 99284; J7030

== ENCOUNTER → 2025-01-07 | Day surgery (SDC) | payer OTHER ==
[~2025-01-07] MED LIST changes: +FENTANYL CITRATE/PF 100MCG/2 ML INJ ONE; +HYOSCYAMINE SULFATE 0.5 MG/ML INJ ONE; +LACTATED RINGER'S 1,000 ML ONE; +METOCLOPRAMIDE HCL 10 MG/2ML VIAL ONE; +ONDANSETRON HCL INJ 2MG/ML 2ML 2 MG/ML VIAL ONE; +PROPOFOL IV EMULSION 10 MG/ML 20 ML VIAL ONE; +PROPOFOL IV EMULSION 50 ML IV ONE
[2025-01-07 14:47] VITALS: TEMP 97.7
[2025-01-07 15:15] VITALS: BP 121/70; PULSE 84; RESP 18; O2SAT 99
== END | disposition home or self-care (01) ==
LOC: OR 11:45
PROVIDERS: ATTEND Internal Medicine Gastroenterology
DX: K29.50 Unspecified chronic gastritis without bleeding (principal); K21.00 Gastro-esophageal reflux disease with esophagitis, without bleeding; B37.82 Candidal enteritis; K44.9 Diaphragmatic hernia without obstruction or gangrene; K31.7 Polyp of stomach and duodenum; K31.89 Other diseases of stomach and duodenum; K57.30 Diverticulosis of large intestine without perforation or abscess without bleeding; K64.8 Other hemorrhoids; I10 Essential (primary) hypertension; M06.9 Rheumatoid arthritis, unspecified; Z80.0 Family history of malignant neoplasm of digestive organs; Z86.0100 Personal history of colon polyps, unspecified; Z01.810 Encounter for preprocedural cardiovascular examination; Z79.85 Long-term (current) use of injectable non-insulin antidiabetic drugs; Z79.899 Other long term (current) drug therapy
CPT/HCPCS: 36415; 43239; 43251; 45378; 82948; 93005; J1980; J2405; J2470; J2704 ×2; J2765; J3010; J7121